=== PATIENT | female | born 1975 | race African-American/Black ===

== ENCOUNTER 2017-02-19 13:47 | Emergency (ER) | payer OTHER ==
[2017-02-19 16:28] LABS: BASOPHIL % 3.3 % (0-2); PLATELET COUNT 283 x10^3mcL (130-400); RED CELL DISTRIBUTION WIDTH 13.8 % (11.5-14.5)
[2017-02-19 16:32] LABS: CALCIUM 8.6 mg/dL (8.5-10.1); CARBON DIOXIDE 26.7 mmol/L (21-32); CHLORIDE SERUM 103 mmol/L (98-107); CREATININE SERUM 0.8 mg/dL (0.6-1.0); GFR1 > 60 mL/min; GLUCOSE SERUM 136 mg/dL (74-106); POTASSIUM SERUM 3.8 mmol/L (3.5-5.1); SODIUM SERUM 137 mmol/L (136-145)
[2017-02-19 16:46] LABS: ALBUMIN 3.4 g/dL (3.4-5.0); ALKALINE PHOSPHATASE 112 U/L (46-116); ALT/SGPT 34 U/L (14-59); AST/SGOT 20 U/L (15-37); BILIRUBIN TOTAL 0.2 mg/dL (0.20-1.00); MAGNESIUM 1.8 mg/dL (1.8-2.4); T4(THYROXINE) 8.1 ug/dL (4.7-13.3); TOTAL PROTEIN, SERUM 7.3 g/dL (6.4-8.2)
[2017-02-19 17:37] LABS: UA SPECIFIC GRAVITY 1.015 (1.005-1.035); microscopic required? YES
[2017-02-19 17:45] VITALS: BP 119/68
[2017-02-19 17:46] LABS: urine erythrocyte 1+ (NEGATIVE)
== END 2017-02-19 17:45 | disposition home or self-care (01) ==
LOC: ED 13:47
PROVIDERS: Emergency Medicine
DX: R60.0 Localized edema (principal); E11.9 Type 2 diabetes mellitus without complications; Z79.84 Long term (current) use of oral hypoglycemic drugs; Z79.899 Other long term (current) drug therapy; Z88.1 Allergy status to other antibiotic agents; Z88.5 Allergy status to narcotic agent
CPT/HCPCS: 36415; 83880; Q0092

== ENCOUNTER 2017-07-22 15:59 | Emergency (ER) | payer OTHER ==
[2017-07-22 17:25] VITALS: BP 140/99
== END 2017-07-22 17:25 | disposition home or self-care (01) ==
LOC: ED 15:59
DX: N39.0 Urinary tract infection, site not specified (principal); E11.9 Type 2 diabetes mellitus without complications; Z79.84 Long term (current) use of oral hypoglycemic drugs

== ENCOUNTER 2017-08-08 06:00 | Emergency (ER) | payer OTHER, MEDICAID ==
[2017-08-08 07:00] VITALS: BP 136/95
== END 2017-08-08 07:00 | disposition home or self-care (01) ==
LOC: ED 06:00
DX: N76.0 Acute vaginitis (principal); I10 Essential (primary) hypertension; E11.9 Type 2 diabetes mellitus without complications; Z88.1 Allergy status to other antibiotic agents; Z88.2 Allergy status to sulfonamides; Z88.5 Allergy status to narcotic agent

== ENCOUNTER 2017-08-27 05:18 | Emergency (ER) | payer OTHER, MEDICAID ==
[2017-08-27 05:27] VITALS: BP 140/92
== END 2017-08-27 06:44 | disposition left against medical advice (07) ==
LOC: ED 05:18
DX: Z53.21 Procedure and treatment not carried out due to patient leaving prior to being seen by health care provider (principal)